=== PATIENT | female | born 1985 | race Caucasian/White ===

== ENCOUNTER 2018-10-03 18:25 | Inpatient (IN) | payer BC ==
[2018-10-03] MEDS ORDERED: ELECTROLYTE-148 SOLN 500 ML IV SCH (19:00)
[2018-10-03] MEDS ORDERED: ELECTROLYTE-148 SOLN 1,000 ML IV SCH (20:00)
[2018-10-03] MEDS: ELECTROLYTE-148 SOLN 1,000 ML IV SCH (23:00)
[2018-10-03 23:15] LABS: BASO % 0.3 % (0-2.0); EOS % 0.1 % (0-4.5); HEMATOCRIT 37.8 % (32.4-45.2); HEMOGLOBIN 12.5 GM/dL (10.7-15.3); LYMPH % 8.6 % (8-40); MEAN CELL VOLUME 88.1 fl (80-96); MEAN PLT VOLUME 10.8 fl (7.5-11.1); MONO % 5.8 % (3.8-10.2); NEUT % 85.2 % (42.8-82.8); RDW 13.8 % (11.6-15.6); WHITE BLOOD COUNT 14.8 K/mm3 (4.0-10.0)
[2018-10-03] MEDS ORDERED: PROMETHAZINE HCL 25 MG/1 ML VIAL ONE (23:37)
[2018-10-03] MEDS ORDERED: BUTORPHANOL TARTRATE 2 MG/ML VIAL ONE (23:37)
[2018-10-03 23:42] LABS: INR 0.87 (0.83-1.09); PROTHROMBIN TIME (PATIENT) 10.3 SEC (9.7-13.0)
[2018-10-03 23:45] LABS: ACTIVATED PTT 28.5 SECONDS (25.2-36.5)
[2018-10-03] MEDS ORDERED: BUTORPHANOL TARTRATE 2 MG/ML VIAL IVPB ONE (23:45)
[2018-10-03] MEDS ORDERED: PROMETHAZINE HCL 25 MG/1 ML VIAL IVPB ONE (23:45)
[2018-10-03 23:52] LABS: BLOOD UREA NITROGEN 11.2 mg/dL (7-18); CALCIUM 8.6 mg/dL (8.5-10.1); CREATININE 0.6 mg/dL (0.55-1.3)
[2018-10-04 00:16] VITALS: BMI 26.0
[2018-10-04 01:11] LABS: PLATELET COUNT 221 K/MM3 (134-434); PLATELET ESTIMATE ADEQUATE
[2018-10-04] MEDS ORDERED: FENTANYL/BUPIVACAINE/NS/PF - PCEA - 50 ML DISP.SYRIN EP ONE ×2 (03:44→09:05)
[2018-10-04] MEDS: ELECTROLYTE-148 SOLN 1,000 ML IV SCH (04:00)
--- NOTE | 2018-10-04 04:04 | HP ---
Past Medical History - Primary Care Physician PCP:: Hansel Cheek - Admission Chief Complaint: 39 weeks, GDM, diet controlled History of Present Illness: 33 yo f , edc by sono 10/09/18 , 39 weeks, GDM, diet controlled, c/o contraction, cx 2 cm 80 vx -2 , had SROM at 1130 last night, clear fluid , regular contraction, FH cat 1 tracing History Source: Patient Limitations to Obtaining History: No Limitations - Past Medical History Renal/: Yes: Renal Calculi ...: 1 ...Para: 0 ...LMP: 01/03/18 ... Weeks Gestation by Dates: 39 ...EDC by Dates: 10/10/18 ...EDC by Sono: 10/09/18 Additional OB History: GDM Endocrine: Yes: Diabetes Mellitus - Past Surgical History Hx Myomectomy: No Hx Transabdominal Cerclage: No - Smoking History Smoking history: Never smoked - Alcohol/Substance Use Hx Alcohol Use: No - Social History Usual Living Arrangement: Yes: With Spouse History of Recent Travel: No Home Medications - Allergies Allergies/Adverse Reactions: Allergies Allergy/AdvReac Type Severity Reaction Status Date / Time No Known Allergies Allergy Verified 10/03/18 20:54 - Home Medications Home Medications: Ambulatory Orders 19 Tablet 1 tab PO DAILY 10/03/18 Review of Systems - Review of Systems Constitutional: reports: No Symptoms Eyes: reports: No Symptoms HENT: reports: No Symptoms Neck: reports: No Symptoms Cardiovascular: reports: No Symptoms Respiratory: reports: No Symptoms Gastrointestinal: reports: No Symptoms Genitourinary: reports: No Symptoms Breasts: reports: No Symptoms Reported Musculoskeletal: reports: No Symptoms Integumentary: reports: No Symptoms Neurological: reports: No Symptoms Endocrine: reports: No Symptoms Hematology/Lymphatic: reports: No Symptoms Psychiatric: reports: No Symptoms Physical Exam - Maternity Vital Signs: Vital Signs Temperature 98.3 F 10/04/18 02:00 Pulse Rate 82 10/04/18 02:00 Respiratory Rate 20 10/04/18 02:00 Blood Pressure 129/79 10/04/18 02:00 O2 Sat by Pulse Oximetry (%) Constitutional: Yes: Well Nourished, No Distress, Calm Eyes: Yes: WNL, Conjunctiva Clear, EOM Intact HENT: Yes: WNL, Atraumatic, Normocephalic Neck: Yes: WNL, Supple, Trachea Midline Cardiovascular: Yes: WNL, Regular Rate and Rhythm Breast(s): Yes: WNL - Abdominal Exam/OB Fundal Height: 38 Number of Fetuses: Single Presentation: Vertex Contractions: Yes Regularity: Regular Monitor Mode: External Heart Rate Location: [facility] Category: I Accelerations: Uniform Decelerations: None - Vaginal Exam/OB Vaginal Bleediing: Yes Speculum Exam: No Dilatation (cm): 2 Effacement (%): 80 Amniotic Membrane Status: Ruptured Nitrazine Test: Positive Amniotic Fluid: Yes: Clear Presentation: Vertex/Position Station: -2 - Physical Exam Musculoskeletal: Yes: Muscle Weakness Extremities: Yes: WNL Edema: LLE: Trace, RLE: Trace Deep Tendon Reflex Grade: Normal +2 Psychiatric: Yes: WNL - Labs Lab Results: CBC, BMP 10/03/18 23:10 10/03/18 23:10 Hemorrhage Risk Assessment - Risk Factors Medium Risk Factors: Yes: Prior , uterine surgery,or multiple laparotomies Risk Score: 1 Risk Level: Medium Risk Problem List - Problems (1) with 39 completed weeks gestation Code(s): Z3A.39 - 39 WEEKS GESTATION OF (2) Labor established Code(s): OXA8458 - (3) GDM (gestational diabetes mellitus) Code(s): O24.419 - GESTATIONAL DIABETES MELLITUS IN , UNSP CONTROL Qualifiers: Gestational diabetes mellitus control: diet-controlled Trimester: third trimester Qualified Code(s): O24.410 - Gestational diabetes mellitus in , diet controlled Assessment/Plan admit for vaginal delivery pain management BS are normal
[2018-10-04] MEDS ORDERED: NALOXONE HCL 0.4 MG/ML VIAL IVPUSH PRN (04:22)
[2018-10-04] MEDS ORDERED: FENTANYL/BUPIVACAINE/NS/PF - PCEA - 50 ML DISP.SYRIN EP SCH (04:30)
--- NOTE | 2018-10-04 07:37 | PN ---
Progress Note (short form) - Note Progress Note: cx 8 to 9 , 100 vx -1 fhr cat 1, regular contraction Problem List - Problems (1) with 39 completed weeks gestation Code(s): Z3A.39 - 39 WEEKS GESTATION OF (2) Labor established Code(s): XVB2091 - (3) GDM (gestational diabetes mellitus) Code(s): O24.419 - GESTATIONAL DIABETES MELLITUS IN , UNSP CONTROL Qualifiers: Gestational diabetes mellitus control: diet-controlled Trimester: third trimester Qualified Code(s): O24.410 - Gestational diabetes mellitus in , diet controlled
[2018-10-04] MEDS ORDERED: ELECTROLYTE-148 SOLN 1,000 ML IV SCH (08:00)
[2018-10-04] MEDS ORDERED: LIDOCAINE HCL 1% PRESERVATIVE FREE - 30ML VIAL ONE (10:44)
[2018-10-04] MEDS ORDERED: OXYTOCIN 20 UNITS in 0.9% NS 20 UNIT/1,000 ML INFUS.BAG IV ONE ×2 (10:44→14:07)
[2018-10-04] MEDS ORDERED: OXYTOCIN 30 UNITS in 0.9% NS 30 UNIT/500 ML INFUS.BAG IVPB ONE (11:05)
--- NOTE | 2018-10-04 11:13 | PN ---
Ante-Partal Exam - Subjective Subjective: Patient reports increased pressure Vital Signs: Vital Signs Temperature 98.3 F 10/04/18 10:06 Pulse Rate 103 H 10/04/18 09:25 Respiratory Rate 20 10/04/18 09:25 Blood Pressure 133/80 10/04/18 09:25 O2 Sat by Pulse Oximetry (%) 98 10/04/18 09:25 Bleeding: No Headache: No Visual changes: No Right upper quadrant pain: No - Contractions Contractions: Yes Regularity: Regular - Exam during Labor Heart Rate: 140 Category: I Monitor Accelerations: Present Monitor Decelerations: None Exam: Vaginal Dilatation (cm): 10 Effacement (%): 100 Amniotic Membrane Status: Ruptured Presentation: Vertex Station: +2 - Intrapartum Hemorrhage Risk Medium Risk Factors: None High Risk Factors: None Risk Score: 0 Risk Level: Low Risk - Assessment/Plan Assessment/Plan: 33 yo active labor 1. Good cervical change, contractions have become infrequent, will start pitocin augmentation 2. Adequate paincontrol with epidural 3. Category I FHT 4. GBS negative 5. Will proceed with expectant management
[2018-10-04] MEDS ORDERED: OXYTOCIN 30 UNITS in 0.9% NS 30 UNIT/500 ML INFUS.BAG IVPB SCH (11:15)
[2018-10-04] MEDS ORDERED: WITCH HAZEL 50% (TUCKS) 40 PAD/JAR PAD TP PRN (13:15)
[2018-10-04] MEDS ORDERED: METHYLERGONOVINE MALEATE 0.2 MG/1 ML AMP IM PRN (13:15)
[2018-10-04] MEDS ORDERED: BISACODYL 10 MG SUPP.RECT RC PRN (13:15)
[2018-10-04] MEDS ORDERED: BENZOCAINE 28 GM HEMORRHOIDAL OINTMENT TP PRN (13:15)
[2018-10-04] MEDS ORDERED: BENZOCAINE 20% 57 GM BOTTLE TP PRN (13:15)
[2018-10-04] MEDS ORDERED: OXYTOCIN 20 UNITS in 0.9% NS 20 UNIT/1,000 ML INFUS.BAG IV SCH (13:15)
--- NOTE | 2018-10-04 13:18 | PN ---
Delivery - Delivery Vaginal Delivery: No Problems Type of Anesthesia: Epidural Episiotomy/Laceration: Midline, 2nd degree EBL (cc): 400 Delivery, Single - Stages of Labor Date 1st Stage Initiatied: 10/04/18 Time 1st Stage Initiated: 03:00 Date 2nd Stage Initiated: 10/04/18 Time 2nd Stage Initiated: 10:30 Date of Delivery: 10/04/18 Time of Delivery: 12:48 Date Placenta Delivered: 10/04/18 Time Placenta Delivered: 13:05 Placenta: Yes: Spontaneous - Condition of Infant Infant Gender: Male Position: Right, OA Total Hours ROM (Hrs/Mins): 13 hours 35 minutes - 1 Minute Total Score: 9 5 Minutes Total Score: 9 - [place] Feeding Plan Initial Plan: Exclusive throughout hospitalization Remarks - Remarks Remarks: Patient progressed to fully dilated and at 1248 via delivered a viable male in OBEY position, APGARs 9,9. Weight and length unknown at this time. Head delivered spontaneously followed by shoulders and body without difficulty. Body cord noted and reduced. Infant with spontaneous cry and placed on mother's abdomen. Nose and mouth was bulb suctioned. Cord was clamped and cut. Perineum and vagina examined, a second degree laceration was noted and repaired in the usual fashion. Rectal exam revealed no sutures in rectum. Placenta was delivered spontaneously and intact. 20 units of pitocin in 1 L IVF was given. All counts correct x 2. Mother and infant stable in LDR. EBL 400cc.
[2018-10-04] MEDS ORDERED: IBUPROFEN 600 MG TABLET (FP) PO ONE (14:58)
[2018-10-04] MEDS ORDERED: ACETAMINOPHEN 325 MG TABLET (FP) ONE (14:58)
[2018-10-04] MEDS: IBUPROFEN 600 MG TABLET (FP) PO PRN (15:00)
[2018-10-04] MEDS: ACETAMINOPHEN 325 MG TABLET (FP) PO PRN (15:00)
[2018-10-05] MEDS: IBUPROFEN 600 MG TABLET (FP) PO PRN ×2 (02:26→13:26)
--- NOTE | 2018-10-05 06:31 | PN ---
Post Progress Note - Subjective Subjective: Patient without acute complaints. Reports tolerating oral intake without nausea or vomiting. Ambulating without dizziness. Denies fevers or chills. Pain well controlled with oral pain medication. without difficulty. Passing flatus. Post Day: 1 Type of Delivery: Vital Signs: Vital Signs Temperature 98.6 F 10/05/18 02:00 Pulse Rate 88 10/05/18 02:00 Respiratory Rate 18 10/05/18 02:00 Blood Pressure 144/94 10/05/18 02:00 O2 Sat by Pulse Oximetry (%) 100 10/04/18 10:40 Breast Exam: Yes: Soft Uterus: Yes: Fundus Firm, Fundus below umbilicus Abdomen/GI: Yes: Abdomen soft, Passing flatus, Tolerating PO. No: Tender Lochia: Yes: Rubra Lochia, amount: Small Extremities: Yes: Calves non-tender, Edema (trace) Perineum: Yes: Laceration Activity: Ambulating - Labs Labs: CBC WBC 14.8 K/mm3 (4.0-10.0) H 10/03/18 23:10 RBC 4.30 M/mm3 (3.60-5.2) 10/03/18 23:10 Hgb 12.5 GM/dL (10.7-15.3) 10/03/18 23:10 Hct 37.8 % (32.4-45.2) 10/03/18 23:10 MCV 88.1 fl (80-96) 10/03/18 23:10 MCH 29.0 pg (25.7-33.7) 10/03/18 23:10 MCHC 33.0 g/dl (32.0-36.0) 10/03/18 23:10 RDW 13.8 % (11.6-15.6) 10/03/18 23:10 Plt Count 221 K/MM3 (134-434) 10/03/18 23:10 MPV 10.8 fl (7.5-11.1) 10/03/18 23:10 Absolute Neuts (auto) 12.6 K/mm3 (1.5-8.0) H 10/03/18 23:10 Neutrophils % 85.2 % (42.8-82.8) H 10/03/18 23:10 Lymphocytes % 8.6 % (8-40) 10/03/18 23:10 Monocytes % 5.8 % (3.8-10.2) 10/03/18 23:10 Eosinophils % 0.1 % (0-4.5) 10/03/18 23:10 Basophils % 0.3 % (0-2.0) 10/03/18 23:10 Nucleated RBC % 0 % (0-0) 10/03/18 23:10 Platelet Estimate Adequate 10/03/18 23:10 Platelet Comment Large platelets 10/03/18 23:10 Assessment/Plan 33 yo PPD #1 s/p , afebrile, vital signs stable, doing wll 1. Continue routine postoperative care. 2. Follow up AM CBC 3. GDM - fasting 78; will advance regular diet Plan for 2 H GTT at 6 wks PP 4.Rh positive status, no rhogam indicated. 5. Encourage ambulation 6. Continue oral pain medication 7. Patient states desires circumcision for . Discussed risks including infection, bleeding, damage to tip of penis, and unsatisfactory result, resulting in surgical repair or repeat circumcision. Patient expressed understanding and consents to procedure. Reviewed infants chart, will wait for carbon cleaner evaluation and clearance before circumcision 8. Anticipate discharge home day #2
--- NOTE | 2018-10-05 06:41 | DS ---
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: Vital Signs Temperature 98.6 F 10/05/18 02:00 Pulse Rate 88 10/05/18 02:00 Respiratory Rate 18 10/05/18 02:00 Blood Pressure 144/94 10/05/18 02:00 O2 Sat by Pulse Oximetry (%) 100 10/04/18 10:40 Labs: CBC, BMP 10/03/18 23:10 10/03/18 23:10 Delivery - Delivery Vaginal Delivery: No Problems Type of Anesthesia: Epidural Episiotomy/Laceration: Midline, 2nd degree EBL (cc): 400 Delivery, Single - Stages of Labor Date 1st Stage Initiatied: 10/04/18 Time 1st Stage Initiated: 03:00 Date 2nd Stage Initiated: 10/04/18 Time 2nd Stage Initiated: 10:30 Date of Delivery: 10/04/18 Time of Delivery: 12:48 Time Placenta Delivered: 13:05 Placenta: Yes: Spontaneous - 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 Present: No Gender: Male Weight: 8 lb 5 oz Position: Right, OA Total Hours ROM (Hrs/Mins): 13 hours 35 minutes - 1 Minute Total Score: 9 5 Minutes Total Score: 9 - [place] Feeding Plan Initial Plan: Exclusive throughout hospitalization Discharge Summary Reason For Visit: LABOR Current Active Problems GDM (gestational diabetes mellitus) (Acute) Labor established (Acute) with 39 completed weeks gestation (Acute) Procedures: Principal: Vaginal Delivery Hospital Course: Patient was admitted in spontaneous labor Received pitocin augmentation during second stage; pushed to deliver via male infant PPD # 1 patient ambulated, voiding, passing gas, tolerating oral intake and with adequate pain control. Hx/o GDM - fasting FS on PPD # 1 WNL, plan for 2 H GTT at 6 wks PP She fulfilled all criteria for discharge PPD #2 Condition: Good - Instructions Diet, Activity, Other Instructions: Return to the office in 4-6 weeks for visit Physical activity Resume your normal everyday activity as tolerated no heavy lifting or exercise until seen by your surgeon. You may walk unlimited nanette of and climb stairs. You may resume driving the car when you feel safe and comfortable behind the wheel. No sexual activity as instructed. Diet There are no dietary restrictions. Eat healthy, high-fiber foods. Drink 6 to 8 glasses of liquid each day. This will assist in keeping your bowels are regular. Pain management You may take Tylenol or acetaminophen or Ibuprofen (for example, Motrin, Advil etc.) for pain. Call MD for any of the following: Severe pain not relieved by medication Fever of 101 or higher Excessive bleeding or drainage on dressing Inability to urinate Referrals: Ayesha Izaguirre MD [Staff Physician] - Disposition: HOME - Home Medications Comprehensive Discharge Medication List: Ambulatory Orders 19 Tablet 1 tab PO DAILY 10/03/18
[2018-10-05 07:34] LABS: BASO % 0.2 % (0-2.0); EOS % 0.7 % (0-4.5); HEMATOCRIT 31.9 % (32.4-45.2); HEMOGLOBIN 10.8 GM/dL (10.7-15.3); LYMPH % 17.7 % (8-40); MCH 29.7 pg (25.7-33.7); MEAN CELL VOLUME 87.3 fl (80-96); MEAN PLT VOLUME 10.6 fl (7.5-11.1); MONO % 11.5 % (3.8-10.2); NEUT % 69.9 % (42.8-82.8); RBC 3.65 M/mm3 (3.60-5.2); RDW 13.8 % (11.6-15.6); WHITE BLOOD COUNT 13.9 K/mm3 (4.0-10.0)
[2018-10-05] MEDS: PRENATAL VITAMINS W/ FOLIC ACID TABLET (FP) PO SCH (09:05)
[2018-10-05 11:36] LABS: PLATELET ESTIMATE NORMAL
[2018-10-05 11:48] LABS: PLATELET COUNT 300 K/MM3 (134-434)
[2018-10-05] MEDS: ACETAMINOPHEN 325 MG TABLET (FP) PO PRN (13:27)
[2018-10-05] MEDS ORDERED: SENNOSIDES/DOCUSATE COMBO (SENNA PLUS) TABLET (UD) PO PRN (22:00)
[2018-10-05 23:56] VITALS: TEMP 98.7
[2018-10-06 08:51] VITALS: BP 126/76; PULSE 89
[2018-10-06] MEDS: IBUPROFEN 600 MG TABLET (FP) PO PRN (09:13)
[2018-10-06] MEDS: PRENATAL VITAMINS W/ FOLIC ACID TABLET (FP) PO SCH (09:13)
--- NOTE | 2018-10-06 10:18 | PN ---
Post Progress Note - Subjective Subjective: Patient without acute complaints. Reports tolerating oral intake without nausea or vomiting. Ambulating without dizziness. Denies fevers or chills. Pain well controlled with oral pain medication. without difficulty. Passing flatus. Post Day: 2 Type of Delivery: Vital Signs: Vital Signs Temperature 98.7 F 10/06/18 08:50 Pulse Rate 89 10/06/18 08:50 Respiratory Rate 18 10/06/18 08:50 Blood Pressure 126/76 10/06/18 08:50 O2 Sat by Pulse Oximetry (%) 100 10/04/18 10:40 Breast Exam: Yes: Engorged Uterus: Yes: Fundus Firm Abdomen/GI: Yes: Abdomen soft, Passing flatus, Tolerating PO. No: Abdominal Distention, Tender Lochia: Yes: Rubra Lochia, amount: Small Extremities: Yes: Calves non-tender, Edema (trace) Perineum: Yes: Laceration Activity: Ambulating - Labs Labs: CBC WBC 13.9 K/mm3 (4.0-10.0) H 10/05/18 06:53 RBC 3.65 M/mm3 (3.60-5.2) 10/05/18 06:53 Hgb 10.8 GM/dL (10.7-15.3) 10/05/18 06:53 Hct 31.9 % (32.4-45.2) L D 10/05/18 06:53 MCV 87.3 fl (80-96) 10/05/18 06:53 MCH 29.7 pg (25.7-33.7) 10/05/18 06:53 MCHC 34.0 g/dl (32.0-36.0) 10/05/18 06:53 RDW 13.8 % (11.6-15.6) 10/05/18 06:53 Plt Count 300 K/MM3 (134-434) D 10/05/18 06:53 MPV 10.6 fl (7.5-11.1) 10/05/18 06:53 Absolute Neuts (auto) 9.7 K/mm3 (1.5-8.0) H 10/05/18 06:53 Neutrophils % 69.9 % (42.8-82.8) 10/05/18 06:53 Lymphocytes % 17.7 % (8-40) D 10/05/18 06:53 Monocytes % 11.5 % (3.8-10.2) H D 10/05/18 06:53 Eosinophils % 0.7 % (0-4.5) D 10/05/18 06:53 Basophils % 0.2 % (0-2.0) 10/05/18 06:53 Nucleated RBC % 0 % (0-0) 10/05/18 06:53 Platelet Estimate Normal 10/05/18 06:53 Platelet Comment Present 10/05/18 06:53 Assessment/Plan 33 yo PPD #2 s/p , afebrile, vital signs stable, doing wll 1. Patient stable for discharge home today. 2. Patient encouraged to contact MD for: - Severe pain not controlled by oral pain medication - Fevers or chills - Nausea or vomiting, intolerance of oral intake 3. Patient to follow up in office in 4-6 weeks for visit
== END 2018-10-06 13:07 | disposition home or self-care (01) | DRG 807 ==
LOC: JDEL 18:25 → JLDR 22:45 → J3W 10-04 15:09
PROVIDERS: ADMIT Obstetrics & Gynecology; ATTEND Obstetrics & Gynecology
PROC: 10E0XZZ Delivery of Products of Conception, External Approach (ICD-10-PCS; principal; 2018-10-04)
PROC: 0KQM0ZZ Repair Perineum Muscle, Open Approach (ICD-10-PCS; 2018-10-04)
PROC: 0W8NXZZ Division of Female Perineum, External Approach (ICD-10-PCS; 2018-10-04)
DX: O70.1 Second degree perineal laceration during delivery (principal); Z37.0 Single live birth; O24.420 Gestational diabetes mellitus in childbirth, diet controlled; Z3A.39 39 weeks gestation of pregnancy
CPT/HCPCS: 36415; 59409; 80048; 82962; 85025; 85610; 85730; 86593; 86850; 86900; 86901; 87389

== ENCOUNTER 2020-06-10 14:15 | Inpatient (IN) | payer BC ==
[2020-06-10] MEDS ORDERED: AMPICILLIN - 2 GM in SODIUM CHLORIDE 100 ML IVPB ONE (14:30)
[2020-06-10] MEDS ORDERED: ELECTROLYTE-148 SOLN 1,000 ML IV SCH (14:30)
[2020-06-10] MEDS ORDERED: FENTANYL/BUPIVACAINE/NS/PF - PCEA - 50 ML DISP.SYRIN EP ONE (15:13)
[2020-06-10] MEDS ORDERED: PCA PUMP NR ONE (15:13)
[2020-06-10] MEDS ORDERED: NALOXONE HCL 0.4 MG/ML VIAL IVPUSH PRN (15:17)
[2020-06-10] MEDS ORDERED: BUPIVACAINE HCL/PF 0.25% (2.5MG/ML) 10 ML VIAL ONE (15:18)
[2020-06-10] MEDS ORDERED: FENTANYL/BUPIVACAINE/NS/PF - PCEA - 50 ML DISP.SYRIN EP SCH (15:30)
[2020-06-10] MEDS ORDERED: OXYTOCIN 20 UNITS in 0.9% NS 20 UNIT/1,000 ML INFUS.BAG IV ONE ×3 (16:00→20:04)
[2020-06-10] MEDS: OXYTOCIN 20 UNITS in 0.9% NS 20 UNIT/1,000 ML INFUS.BAG IV SCH ×2 (16:40→18:10)
[2020-06-10] MEDS ORDERED: METHYLERGONOVINE MALEATE 0.2 MG/1 ML AMP IM PRN (17:02)
[2020-06-10] MEDS ORDERED: BISACODYL 10 MG SUPP.RECT RC PRN (17:02)
[2020-06-10] MEDS ORDERED: BENZOCAINE 28 GM HEMORRHOIDAL OINTMENT TP PRN (17:02)
[2020-06-10] MEDS ORDERED: BENZOCAINE 20% 57 GM BOTTLE TP PRN (17:02)
[2020-06-10] MEDS ORDERED: WITCH HAZEL 50% (TUCKS) 40 PAD/JAR PAD TP PRN (17:02)
[2020-06-10 17:40] VITALS: BMI 29.7
[2020-06-10 17:50] LABS: BASO % 0.3 % (0-2.0); HEMATOCRIT 38.9 % (32.4-45.2); HEMOGLOBIN 12.9 GM/dL (10.7-15.3); LYMPH % 4.3 % (8-40); MCHC 33.2 g/dl (32.0-36.0); MEAN CELL VOLUME 90.4 fl (80-96); MEAN PLT VOLUME 10.5 fl (7.5-11.1); MONO % 2.9 % (3.8-10.2); NEUT % 92.5 % (42.8-82.8); PLATELET COUNT 279 K/MM3 (134-434); RBC 4.31 M/mm3 (3.60-5.2); RDW 13.7 % (11.6-15.6); WHITE BLOOD COUNT 14.8 K/mm3 (4.0-10.0)
[2020-06-10 18:11] LABS: CALCIUM 8.4 mg/dL (8.5-10.1)
[2020-06-10 18:12] LABS: ALBUMIN 2.7 g/dl (3.4-5.0)
[2020-06-10 18:14] LABS: URIC ACID 3.7 mg/dL (2.6-7.2)
[2020-06-10 18:15] LABS: CREATININE 0.7 mg/dL (0.55-1.3)
[2020-06-10 18:16] LABS: BILIRUBIN,TOTAL 0.7 mg/dL (0.2-1); TOT PROT 6.6 g/dl (6.4-8.2)
[2020-06-10 18:20] LABS: INR 0.92 (0.83-1.09); PROTHROMBIN TIME (PATIENT) 11.3 SEC (9.7-13.0)
[2020-06-10 18:22] LABS: ACTIVATED PTT 26.5 SECONDS (25.2-36.5)
[2020-06-10 18:23] LABS: ANISOCYTOSIS 1+; MACROCYTOSIS 1+; PLATELET ESTIMATE NORMAL
[2020-06-10] MEDS ORDERED: ACETAMINOPHEN 325 MG TABLET (FP) ONE (20:12)
[2020-06-10] MEDS: ACETAMINOPHEN 325 MG TABLET (FP) PO PRN (20:14)
[2020-06-11] MEDS: IBUPROFEN 600 MG TABLET (FP) PO PRN ×3 (01:54→14:36)
[2020-06-11] MEDS: ACETAMINOPHEN 325 MG TABLET (FP) PO PRN ×2 (06:43→14:37)
[2020-06-11 09:29] LABS: BASO % 0.3 % (0-2.0); EOS % 0.3 % (0-4.5); HEMOGLOBIN 11.9 GM/dL (10.7-15.3); LYMPH % 12.6 % (8-40); MCH 30.4 pg (25.7-33.7); MCHC 33.9 g/dl (32.0-36.0); MEAN CELL VOLUME 89.6 fl (80-96); MEAN PLT VOLUME 10.3 fl (7.5-11.1); MONO % 10.8 % (3.8-10.2); PLATELET COUNT 238 K/MM3 (134-434); RBC 3.91 M/mm3 (3.60-5.2); RDW 13.8 % (11.6-15.6); WHITE BLOOD COUNT 12.7 K/mm3 (4.0-10.0)
[2020-06-11] MEDS: PRENATAL VITAMINS W/ FOLIC ACID TABLET (FP) PO SCH (09:50)
[2020-06-11] MEDS ORDERED: SENNOSIDES/DOCUSATE COMBO (SENNA PLUS) TABLET (UD) PO PRN (22:00)
[2020-06-12] MEDS: ACETAMINOPHEN 325 MG TABLET (FP) PO PRN ×2 (01:36→07:38)
[2020-06-12] MEDS: IBUPROFEN 600 MG TABLET (FP) PO PRN ×2 (01:37→07:37)
[2020-06-12 10:56] VITALS: BP 119/73; PULSE 85; TEMP 97.9
[2020-06-12] MEDS: PRENATAL VITAMINS W/ FOLIC ACID TABLET (FP) PO SCH (11:22)
== END 2020-06-12 17:00 | disposition home or self-care (01) | DRG 807 ==
LOC: JLDR 14:15 → J3W 22:00
PROVIDERS: ADMIT Obstetrics & Gynecology; ATTEND Obstetrics & Gynecology
PROC: 10E0XZZ Delivery of Products of Conception, External Approach (ICD-10-PCS; principal; 2020-06-10)
PROC: 0KQM0ZZ Repair Perineum Muscle, Open Approach (ICD-10-PCS; 2020-06-10)
DX: O99.824 Streptococcus B carrier state complicating childbirth (principal); Z37.0 Single live birth; O70.1 Second degree perineal laceration during delivery; O69.81X0 Labor and delivery complicated by cord around neck, without compression, not applicable or unspecified; Z3A.38 38 weeks gestation of pregnancy; Z86.32 Personal history of gestational diabetes; Z87.442 Personal history of urinary calculi
CPT/HCPCS: 36415; 59409; 80053; 84550; 85025; 85610; 85730; 86780; 86850; 86900; 86901; C9803; U0003

== ENCOUNTER 2022-04-08 08:15 | Inpatient (IN) | payer BC ==
[2022-04-08 09:07] LABS: BASO % 0.6 % (0-2.0); EOS % 0.6 % (0-4.5); HEMATOCRIT 39.6 % (32.4-45.2); LYMPH % 18.8 % (8-40); MCH 28.7 pg (25.7-33.7); MCHC 32.8 g/dl (32.0-36.0); MEAN CELL VOLUME 87.5 fl (80-96); MONO % 9.3 % (3.8-10.2); NEUT % 70.7 % (42.8-82.8); PLATELET COUNT 242 10^3/uL (134-434); RBC 4.52 M/mm3 (3.60-5.2); RDW 13.6 % (11.6-15.6); WHITE BLOOD COUNT 7.7 K/mm3 (4.0-10.0)
[2022-04-08 09:16] LABS: INR 0.9 (0.83-1.09); PROTHROMBIN TIME (PATIENT) 10.3 SEC (9.7-13.0)
[2022-04-08 09:19] LABS: ACTIVATED PTT 26.4 SECONDS (25.2-36.5)
[2022-04-08 09:36] VITALS: BMI 29.9
[2022-04-08 09:56] LABS: CALCIUM 9.1 mg/dL (8.5-10.1)
[2022-04-08 09:57] LABS: BLOOD UREA NITROGEN 7.6 mg/dL (7-18)
[2022-04-08 10:00] LABS: CREATININE 0.6 mg/dL (0.55-1.3)
[2022-04-08] MEDS ORDERED: OXYTOCIN 30 UNITS in 0.9% NS 30 UNIT/500 ML INFUS.BAG IVPB ONE (10:14)
[2022-04-08] MEDS ORDERED: AMPICILLIN SODIUM 2 GM VIAL ONE (10:14)
[2022-04-08] MEDS ORDERED: AMPICILLIN - 2 GM in SODIUM CHLORIDE 100 ML IVPB ONE (10:24)
[2022-04-08] MEDS ORDERED: ELECTROLYTE-148 SOLN 1,000 ML IV SCH (10:30)
[2022-04-08] MEDS ORDERED: OXYTOCIN 30 UNITS in 0.9% NS 30 UNIT/500 ML INFUS.BAG IVPB SCH (10:30)
[2022-04-08] MEDS ORDERED: FENTANYL/BUPIVACAINE/NS/PF - PCEA - 50 ML DISP.SYRIN EP ONE ×3 (12:49→20:30)
[2022-04-08] MEDS ORDERED: BUPIVACAINE HCL/PF 0.25% (2.5MG/ML) 10 ML VIAL ONE (12:53)
[2022-04-08] MEDS ORDERED: NALOXONE HCL 0.4 MG/ML VIAL IVPUSH PRN (13:44)
[2022-04-08] MEDS ORDERED: FENTANYL/BUPIVACAINE/NS/PF - PCEA - 50 ML DISP.SYRIN EP SCH ×2 (13:45→13:50)
[2022-04-08] MEDS ORDERED: AMPICILLIN SODIUM 1 GM VIAL ONE ×2 (14:20→17:43)
[2022-04-08] MEDS ORDERED: AMPICILLIN - 1 GM in SODIUM CHLORIDE 100 ML IVPB SCH (14:30)
[2022-04-08] MEDS ORDERED: LIDOCAINE HCL 1% PRESERVATIVE FREE - 30ML VIAL ONE (22:12)
[2022-04-08] MEDS ORDERED: OXYTOCIN 20 UNITS in 0.9% NS 20 UNIT/1,000 ML INFUS.BAG IV ONE (22:12)
[2022-04-08] MEDS ORDERED: BISACODYL 10 MG SUPP.RECT RC PRN (22:29)
[2022-04-08] MEDS ORDERED: BENZOCAINE 28 GM HEMORRHOIDAL OINTMENT TP PRN (22:29)
[2022-04-08] MEDS ORDERED: METHYLERGONOVINE MALEATE 0.2 MG/1 ML AMP IM PRN (22:29)
[2022-04-08] MEDS ORDERED: ACETAMINOPHEN 325 MG TABLET (FP) PO PRN (22:29)
[2022-04-08] MEDS ORDERED: oxyCODONE HCL 5 MG TABLET PO PRN (22:29)
[2022-04-08] MEDS ORDERED: BENZOCAINE 20% 57 GM BOTTLE TP PRN (22:29)
[2022-04-08] MEDS ORDERED: WITCH HAZEL 50% (TUCKS) 40 PAD/JAR PAD TP PRN (22:29)
[2022-04-08] MEDS ORDERED: OXYTOCIN 20 UNITS in 0.9% NS 20 UNIT/1,000 ML INFUS.BAG IV SCH (22:30)
[2022-04-08 22:47] LABS: CORD BASE EXCESS -2.4 mmol/L (0-2); CORD HCO3 23.5 mmHg (20-29); CORD PCO2 44.8 mmHg (30-78); CORD pH 7.338 (7.14-7.44)
[2022-04-08 22:48] LABS: CORD BASE EXCESS -3.4 mmol/L (0-2); CORD HCO3 24.6 mmHg (20-29); CORD PCO2 55.5 mmHg (30-78); CORD pH 7.265 (7.14-7.44)
[2022-04-09] MEDS: IBUPROFEN 600 MG TABLET (FP) PO PRN ×4 (01:37→20:24)
[2022-04-09 07:45] LABS: BASO % 0.3 % (0-2.0); EOS % 0.3 % (0-4.5); HEMATOCRIT 38.7 % (32.4-45.2); HEMOGLOBIN 12.7 GM/dL (10.7-15.3); LYMPH % 16.9 % (8-40); MCH 28.8 pg (25.7-33.7); MCHC 32.8 g/dl (32.0-36.0); MEAN CELL VOLUME 87.7 fl (80-96); MEAN PLT VOLUME 10.5 fl (7.5-11.1); MONO % 11.8 % (3.8-10.2); NEUT % 70.7 % (42.8-82.8); PLATELET COUNT 235 10^3/uL (134-434); RBC 4.41 M/mm3 (3.60-5.2); RDW 13.8 % (11.6-15.6); WHITE BLOOD COUNT 13.1 K/mm3 (4.0-10.0)
[2022-04-09] MEDS: PRENATAL VITAMINS W/ FOLIC ACID TABLET (FP) PO SCH (10:54)
[2022-04-09] MEDS ORDERED: SENNOSIDES/DOCUSATE COMBO (SENNA PLUS) TABLET (UD) PO PRN (22:00)
[2022-04-10 10:03] VITALS: BP 123/80; PULSE 78; RESP 15; TEMP 98.2
[2022-04-10] MEDS: PRENATAL VITAMINS W/ FOLIC ACID TABLET (FP) PO SCH (10:19)
== END 2022-04-10 11:10 | disposition home or self-care (01) | DRG 807 ==
LOC: JLDR 08:15 → J3W 23:58
PROVIDERS: ADMIT Obstetrics & Gynecology; ATTEND Obstetrics & Gynecology
PROC: 10E0XZZ Delivery of Products of Conception, External Approach (ICD-10-PCS; principal; 2022-04-08)
PROC: 3E0P7VZ Introduction of Hormone into Female Reproductive, Via Natural or Artificial Opening (ICD-10-PCS; 2022-04-08)
PROC: 3E033VJ Introduction of Other Hormone into Peripheral Vein, Percutaneous Approach (ICD-10-PCS; 2022-04-08)
DX: O24.424 Gestational diabetes mellitus in childbirth, insulin controlled (principal); Z37.0 Single live birth; O99.824 Streptococcus B carrier state complicating childbirth; Z3A.39 39 weeks gestation of pregnancy
CPT/HCPCS: 36415; 36600; 59409; 80048; 82803; 82962; 85025; 85610; 85730; 86780; 86850; 86900; 86901; C9803-CS; U0003; U0005